=== PATIENT | female | born 1995 | race Caucasian/White ===

== ENCOUNTER 2024-10-06 08:24 | Emergency (ER) | payer MEDICAID, OTHER ==
[~2024-10-06] VITALS: Ht 167.6 cm; Wt 118.0 kg
[2024-10-06 08:34] VITALS: TEMP 36.9; O2SAT 98
[2024-10-06] MEDS: KETOROLAC 30MG/ML VIAL IM ONE (08:45)
[2024-10-06] MEDS: METHOCARBAMOL 500MG TABLET PO ONE (08:45)
[2024-10-06] MEDS: TRAMADOL 50MG TABLET PO ONE (08:45)
[2024-10-06] MEDS ORDERED: DICL100G58 TP (09:00)
[2024-10-06] MEDS ORDERED: METH-653 MT (09:00)
[2024-10-06] MEDS ORDERED: LIDO700A30 TP (09:01)
[2024-10-06] MEDS: LIDOCAINE 5% PATCH TOP SCH (09:09)
[2024-10-06 10:15] VITALS: BP 153/89; PULSE 98; RESP 20; O2SAT 99
== END 2024-10-06 10:25 | disposition home or self-care (01) ==
LOC: ER 08:24
DX: G89.29 Other chronic pain (principal); M51.16 Intervertebral disc disorders with radiculopathy, lumbar region
CPT/HCPCS: 99284; 96372; J1885; 99282